=== PATIENT | female | born 1995 | race Caucasian/White ===

== ENCOUNTER 2018-09-16 09:38 | Emergency (ER) | payer SELFPAY ==
[2018-09-16 09:46] VITALS: BP 119/73; PULSE 86; RESP 16; TEMP 36.8; O2SAT 98
--- NOTE | 2018-09-16 10:11 | DI.US.S_ITS ---
PROCEDURE: US ABDOMEN COMPLETE INDICATIONS: severe R sided abdominal pain, fever TECHNIQUE: Real-time scanning was performed of the abdominal and retroperitoneal organs, with image documentation. COMPARISON: None. FINDINGS: Liver: Liver is normal in size and homogeneous in echotexture. Gallbladder: The gallbladder appears normal Biliary ducts: Intrahepatic bile ducts are non-dilated. Extrahepatic bile duct caliber measures 4.0 mm. Normal is 6-7 mm or less in diameter, or 10 mm or less post-cholecystectomy. Pancreas: Visualized portions of the pancreas are sonographically normal. Spleen: Spleen is normal in size and homogeneous in echotexture. Kidneys: Kidneys are normal in size and echotexture. Right kidney measures 11.3 cm long; left kidney measures 11.5 cm long. No hydronephrosis or nephrolithiasis. No solid masses. Aorta: Visualized aorta is normal in caliber at less than 3 cm. Iliacs: Is not visualized due to bowel gas. IVC: Intrahepatic inferior vena cava is patent. Miscellaneous: No free abdominal fluid. IMPRESSION: Bowel gas over the pelvis precludes visualization of the iliac arteries. The aorta is normal in caliber. A normal or abnormal appendix could not be located as a result. There is no hydronephrosis or nephrolithiasis seen. Depending on the clinical status followup by CT scanning may become necessary. Dictated by: Dakotah Brito M.D. on 09/16/2018 at 12:36 Approved by: Dakotah Brito M.D. on 09/16/2018 at 12:37
--- NOTE | 2018-09-16 10:12 | ED.ABDPAIN ---
HPI - Abdominal Pain General Chief Complaint: Abdominal Pain Stated Complaint: SHARP PAIN IN STOMACH Time Seen by Provider: 09/16/18 09:45 Source: patient Mode of arrival: ambulatory Limitations: no limitations History of Present Illness HPI narrative: 23-year-old occasional smoker presents with a friend in the chief complaint of some vague right-sided abdominal pain. She states she has had this pain for about a week. She denies any nausea or vomiting. She denies radiation of her pain nor provocation or palliation. She states she has had no vaginal bleeding and minimal discharge. She is sexually active. Patient states the symptoms have been relatively stable for the past few days. [facility] and [facility] did a very thorough examination including pelvic exam and swabs. She was tested for multiple STDs which were negative. She was diagnosed with bacterial vaginosis and sent home on Flagyl. She just had her last period which was normal for her MD complaint: abdominal pain Onset (ago): day(s) Pain Consistency: constant Location: R flank Severity: mild Quality: cramping and aching Radiation: none Migration to: no migration Relieving factors: nothing Exacerbating factors: nothing Associated symptoms: nausea Treatments prior to arrival: other Related Data Patient : No Home Medications Medication Instructions Recorded Confirmed metronidazole 500 mg PO BIDX7 09/16/18 09/16/18 Allergies Allergy/AdvReac Type Severity Reaction Status Date / Time No Known Drug Allergies Allergy Verified 09/16/18 09:46 Review of Systems Review of Systems All systems reviewed & are unremarkable except as noted in HPI and below Constitutional Denies chills, Denies fever(s), Denies lethargy and Denies weakness Eyes Denies change in vision, Denies eye discharge, Denies irritation and Denies loss of vision ENT Ears, Nose, Mouth, and Throat: Denies change in voice, Denies neck pain and Denies sore throat Cardiovascular Denies chest pain, Denies irregular heart rhythm, Denies lightheadedness, Denies palpitations, Denies dyspnea, Denies dyspnea on exertion and Denies orthopnea Respiratory Denies cough, Denies dyspnea, Denies dyspnea on exertion and Denies wheezing Gastrointestinal Gastrointestinal: Reports abdominal pain, Denies change in bowel habits, Denies diarrhea, Denies nausea and Denies vomiting Genitourinary Denies hematuria, Denies flank pain, Denies urinary incontinence and Denies urinary urgency Musculoskeletal Denies neck pain Integumentary/Breasts Denies pruritus, Denies erythema, Denies rash and Denies wounds Neurologic Denies confusion, Denies loss of vision and Denies weakness Psychiatric Denies anxiety, Denies confusion, Denies depression, Denies homicidal ideation and Denies suicidal ideation Endocrine Denies palpitations Hematologic/Lymphatic Denies easy bruising Allergic/Immunologic Denies wheezing PFSH Surgical History Status post knee surgery Family History Father Age: 57 Hypertension High cholesterol Grandfather Age: 80 Hypertension Stroke Grandmother Cancer Grandfather Cancer Grandmother Age: 89 Stroke Social History Smoking Status: Never smoker Exam Narrative Exam Narrative: GENERAL: 23-year-old female resting comfortably, was some obvious right-sided abdominal pain, clutching her abdomen HEAD: Atraumatic. Normocephalic. No temporal or scalp tenderness. EYES: Pupils equal round and reactive. Extraocular motions intact. No scleral icterus. No injection or drainage. ENT: Nose without bleeding, purulent drainage or septal hematoma. Throat without erythema, tonsillar hypertrophy or exudate. Uvula midline. Airway patent. NECK: Trachea midline. No JVD or lymphadenopathy. Supple, nontender, no meningeal signs. CARDIOVASCULAR: Regular rate and rhythm without murmurs, gallops, or rubs. RESPIRATORY: Clear to auscultation. Breath sounds equal bilaterally. No wheezes, rales, or rhonchi. GASTROINTESTINAL: Abdomen soft, mild mid right-sided pain barely made worse with palpation, nondistended. No hepato-splenomegaly, or palpable masses. No guarding. EXTREMITIES: No clubbing, cyanosis, or edema. No joint tenderness, effusion, or edema noted. BACK: Nontender without deformity or crepitance. No flank tenderness. NEURO: AOx3. SKIN: No rash or erythema. Initial Vital Signs Initial Vital Signs: Vital Signs Temperature 98.3 F 09/16/18 09:46 Pulse Rate 86 09/16/18 09:46 Respiratory Rate 16 09/16/18 09:46 Blood Pressure 119/73 09/16/18 09:46 Pulse Oximetry 98 09/16/18 09:46 Course Orders Ordered: ED Orders 09/16/18 11:04 Urine Microscopic Stat Vital Signs - 8 hr 09/16/18 13:35 Pulse Rate 73 Respiratory Rate 20 Blood Pressure 104/73 Pulse Oximetry 98 MDM - Abdominal Pain Differential Diagnosis Differential diagnosis: Likely abdominal pain, acute appendicitis, calculus of kidney, constipation, diverticulitis, endometriosis, gastroenteritis, pancreatitis and small bowel obstruction Medical Records Attestation: I reviewed the patient's medical records. Lab Data Attestation: I reviewed the patient's lab results. Result diagrams: 09/16/18 10:10 09/16/18 10:10 Lab Results 09/16/18 09/16/18 09/16/18 Range/Units 10:10 10:10 10:10 WBC 9.3 (4.5-11.0) X10^3/uL RBC 4.28 (4.0-5.2) X10^6/uL Hgb 12.8 (12.0-16.0) g/dL Hct 38.3 (36-46) % MCV 89.6 (80-100) fL MCH 29.9 (26-34) PG MCHC 33.4 (30-36) % RDW 12.6 (11.6-14.8) % Plt Count 299 (150-400) X10^3/uL Neut % (Auto) 68.8 (50-75) % Lymph % (Auto) 18.7 L (25-40) % [place] % (Auto) 10.6 (3-14) % Eos % (Auto) 1.5 L (2-4) % Baso % (Auto) 0.4 (0-2) % Neut # (Auto) 6400 H (9554-5676) /uL Sodium 143 (137-145) mmol/L Potassium 4.7 (3.4-5.1) mmol/L Chloride 105 (98-107) mmol/L Carbon Dioxide 25 (22-32) mmol/L BUN 12 (7-17) mg/dL Creatinine 0.90 (0.52-1.04) mg/dL Estimated GFR > 60.0 (>60) mL/min BUN/Creatinine Ratio 13.3 (6-22) Glucose 98 (70-100) mg/dL Calcium 9.1 (8.4-10.2) mg/dL Total Bilirubin 0.7 (0.2-1.3) mg/dL AST 33 (14-36) IU/L ALT 18 (9-52) IU/L Alkaline Phosphatase 38 (38-126) U/L Total Protein 8.5 H (6.3-8.2) g/dL Albumin 4.5 (3.5-5.0) g/dL Globulin 4.0 (1.7-4.1) g/dL Albumin/Globulin Ratio 1.1 (1.0-2.8) Lipase 103 (23-300) U/L Urine RBC (0-5/HPF) Urine WBC (0-5/HPF) Ur Squamous Epith Cells Urine Bacteria (None) Ur Culture Indicated? Micro UA Comment 09/16/18 Range/Units 11:04 WBC (4.5-11.0) X10^3/uL RBC (4.0-5.2) X10^6/uL Hgb (12.0-16.0) g/dL Hct (36-46) % MCV (80-100) fL MCH (26-34) PG MCHC (30-36) % RDW (11.6-14.8) % Plt Count (150-400) X10^3/uL Neut % (Auto) (50-75) % Lymph % (Auto) (25-40) % [place] % (Auto) (3-14) % Eos % (Auto) (2-4) % Baso % (Auto) (0-2) % Neut # (Auto) (9458-7284) /uL Sodium (137-145) mmol/L Potassium (3.4-5.1) mmol/L Chloride (98-107) mmol/L Carbon Dioxide (22-32) mmol/L BUN (7-17) mg/dL Creatinine (0.52-1.04) mg/dL Estimated GFR (>60) mL/min BUN/Creatinine Ratio (6-22) Glucose (70-100) mg/dL Calcium (8.4-10.2) mg/dL Total Bilirubin (0.2-1.3) mg/dL AST (14-36) IU/L ALT (9-52) IU/L Alkaline Phosphatase (38-126) U/L Total Protein (6.3-8.2) g/dL Albumin (3.5-5.0) g/dL Globulin (1.7-4.1) g/dL Albumin/Globulin Ratio (1.0-2.8) Lipase (23-300) U/L Urine RBC None seen (0-5/HPF) Urine WBC 0-1/hpf (0-5/HPF) Ur Squamous Epith Cells 1-5 /hpf Urine Bacteria None seen (None) Ur Culture Indicated? Cult not indicated Micro UA Comment Not Reportable Point of care testing: Point of Care Testing Test Results Negative Urine Dip Bedside Urine Glucose Negative Bedside Urine Bilirubin - Negative Bedside Urine Ketone - Negative Urine Specific [place] 1.015 Bedside Urine Occult Blood - Negative Bedside Urine pH 6.0 Bedside Urine Protein - Negative Bedside Urine Urobilinogen - Negative Bedside Urine Nitrite - Negative Bedside Urine Leukocytes + 70 Esterase Imaging Data US - abdomen: Radiologist's impression: No acute process MDM Narrative Medical decision making narrative: Pelvic inflammatory disease considered but [facility] and [facility] lab findings it is thought much less likely. Acute appendicitis considered but given lack of progression of symptoms, normal appetite, lack of right lower quadrant pain, fever or elevated white blood cell count is thought much less likely. Gallbladder disease considered but lack of right upper quadrant pain or abdominal ultrasound findings make it less likely. We discussed the possibility of using an abdominal CT to further elucidate the source of this patient's symptoms but she refused at this point time stating she would prefer to wait and get it done only if her symptoms worsened Discharge Plan Departure Patient Disposition: Home Clinical Impression: Abdominal pain Discharge Date/Time: 09/16/18 13:36 Interventions: ED Discharge Assessment Last Done: 09/16/18 13:35 Instructions: DI for Abdominal Pain-Adult Activity Restrictions/Additional Instructions: *You have been diagnosed with [ nonspecific right-sided abdominal pain ] *What to do: * continue to take medications as directed *Follow up with your primary care provider in 2-3 days, call for an appointment. Let them know you were seen in the Emergency Department and that we ask that you be seen in follow up *Return to ER if you should have any new, worsening or concerning symptoms Prescriptions: No Action metronidazole 500 mg tablet 500 mg PO BIDX7 RF: 0 Referrals: Mark Lewis MD [Physician] - Rosalba Aburto MD [Physician] - Marlee Gregorio MD [Physician] -
[2018-09-16 10:21] LABS: Add Manual Diff / Slide Review NO; Basophils Percent Auto 0.4 % (0-2); Eosinophils Percent Auto 1.5 % (2-4); Hematocrit 38.3 % (36-46); Hemoglobin 12.8 g/dL (12.0-16.0); Lymphocytes Percent Auto 18.7 % (25-40); Mean Corpuscular HGB Conc 33.4 % (30-36); Mean Corpuscular Hemoglobin 29.9 PG (26-34); Mean Corpuscular Volume 89.6 fL (80-100); Monocytes Percent Auto 10.6 % (3-14); Neutrophils Absolute Auto 6400 /uL (3000-5900); Neutrophils Percent Auto 68.8 % (50-75); Platelet Count 299 X10^3/uL (150-400); Red Blood Cell Count 4.28 X10^6/uL (4.0-5.2); Red Cell Distribution Width 12.6 % (11.6-14.8); White Blood Cell Count 9.3 X10^3/uL (4.5-11.0)
[2018-09-16 10:33] LABS: Alanine Aminotransferase 18 IU/L (9-52); Albumin 4.5 g/dL (3.5-5.0); Albumin Globulin Ratio 1.1 (1.0-2.8); Alkaline Phosphatase 38 U/L (38-126); Aspartate Aminotransferase 33 IU/L (14-36); BUN Creatinine Ratio 13.3 (6-22); Bilirubin Total 0.7 mg/dL (0.2-1.3); Blood Urea Nitrogen 12 mg/dL (7-17); Calcium 9.1 mg/dL (8.4-10.2); Carbon Dioxide 25 mmol/L (22-32); Chloride 105 mmol/L (98-107); Estimated Glomerular Filt Rate > 60.0 mL/min (>60); Glucose 98 mg/dL (70-100); Lipase 103 U/L (23-300); Potassium 4.7 mmol/L (3.4-5.1); Sodium 143 mmol/L (137-145); Total Protein 8.5 g/dL (6.3-8.2)
[2018-09-16 10:34] LABS: HEMOLYSIS 126 (0-50)
[2018-09-16 11:05] LABS: Bacteria Urine None Seen; RBC Urine None Seen (0-5/HPF)
[2018-09-16 11:16] LABS: Squamous Epithelial Cell Urine 1-5 /HPF; WBC Urine 0-1/HPF (0-5/HPF)
[2018-09-16 11:17] LABS: Culture Indicated Urine Cult Not Indicated
[2018-09-16 13:35] VITALS: BP 104/73; PULSE 73; RESP 20; O2SAT 98
== END 2018-09-16 13:36 | disposition home or self-care (01) ==
PROVIDERS: Emergency Provider Emergency Medicine
DX: R10.9 Unspecified abdominal pain (principal)
CPT/HCPCS: 36591; 76700; 80053; 81003; 81015; 81025; 83690; 85025; 99282; 99285

== ENCOUNTER → 2022-06-15 17:28 | Outpatient (CLI) | payer OTHER, MEDICAID, SELFPAY ==
[2022-06-15 18:45] LABS: HCG Quantitative /Beta subunit 15791 mIU/mL
== END ==
PROVIDERS: Referring Provider Obstetrics & Gynecology; Visit Provider Obstetrics & Gynecology
DX: Z87.59 Personal history of other complications of pregnancy, childbirth and the puerperium (principal)
CPT/HCPCS: 36415; 84702

== ENCOUNTER → 2022-06-17 16:46 | Outpatient (CLI) | payer OTHER, MEDICAID, SELFPAY ==
[2022-06-17 19:22] LABS: HCG Quantitative /Beta subunit 20386 mIU/mL
== END ==
PROVIDERS: Referring Provider Obstetrics & Gynecology; Visit Provider Obstetrics & Gynecology
DX: Z87.59 Personal history of other complications of pregnancy, childbirth and the puerperium (principal)
CPT/HCPCS: 36415; 84702

== ENCOUNTER 2022-06-28 09:52 | Emergency (ER) | payer OTHER, MEDICAID, SELFPAY ==
--- NOTE | 2022-06-28 10:07 | DI.US.S_ITS ---
PROCEDURE: US OB <= 14 WEEKS FETUS INDICATIONS: BLEEDING OUTSIDE/PRIOR DATING DATA: Last menstrual period (LMP): 2021. LMP-based estimated date of delivery (CAMERON): 02/08/2023. First dating scan (date and location): 01/26/2022. Estimated date of delivery (CAMERON) from first dating scan: 02/07/2023. The calculations are made using the ultrasound CAMERON of 02/08/2023. TECHNIQUE: Real-time scanning was performed of the fetus and maternal pelvic organs, with image documentation. Endovaginal scanning was also performed to better visualize the fetus and maternal ovaries. COMPARISON: None. FINDINGS: Embryo: A single live intrauterine is seen. The measured heart rate is 158 beats per minute. The crown-rump length measures 1.6 cm, corresponding to an estimated gestational age of 8 weeks 0 days. It is too early for detailed anatomic assessment. By visual inspection, the amount of amniotic fluid is within normal limits. Along the posterior aspect of the gestational sac, there is a mildly hypoechoic focus seen that measures 3.1 x 2.6 x 4.2 cm. Maternal organs: Ovaries are within normal limits, with a likely left ovarian corpus luteum. IMPRESSION: A single live intrauterine is seen. No significant discrepancy is found between the estimated gestational age based on these images and the estimated gestational age based upon the given date of the last menstrual period. Likely subchorionic hemorrhage seen adjacent to the gestational sac. Close clinical followup, with serial beta-hCG and serial ultrasound are recommended, if clinically appropriate. We strive to produce accurate, complete, and clear reports of imaging services. To assist us in improving patient care, this report was composed using standard report templates and voice recognition software. Therefore, it may contain abnormal punctuation, insertions and/or omissions. Occasional wrong-word or sound-alike substitutions may occur. Though we review the report and make efforts to correct it, we do recommend that the report be read carefully in proper context to recognize any text inaccuracies. Dictated by: Handy Pizano M.D. on 06/28/2022 at 10:15 Approved by: Handy Pizano M.D. on 06/28/2022 at 10:18
[2022-06-28 10:13] VITALS: BP 128/78; PULSE 68; RESP 18; TEMP 36.6; O2SAT 100; BMI 26.3
[2022-06-28 10:22] LABS: Add Manual Diff / Slide Review NO; Basophils Absolute Auto 0 /uL (0-100); Basophils Percent Auto 0.3 % (0-2); Eosinophils Absolute Auto 100 /uL (0-450); Eosinophils Percent Auto 1.1 % (2-4); Hematocrit 36.4 % (36-46); Hemoglobin 12.4 g/dL (12.0-16.0); Lymphocytes Absolute Auto 1700 /uL (1100-4500); Lymphocytes Percent Auto 25.3 % (25-40); Mean Corpuscular HGB Conc 34.2 % (30-36); Mean Corpuscular Hemoglobin 30.2 PG (26-34); Mean Corpuscular Volume 88.3 fL (80-100); Monocytes Absolute Auto 500 /uL (0-900); Neutrophils Absolute Auto 4400 /uL (1500-7000); Neutrophils Percent Auto 65.3 % (50-75); Platelet Count 247 X10^3/uL (150-400); Red Blood Cell Count 4.12 X10^6/uL (4.0-5.2); Red Cell Distribution Width 12.4 % (11.6-14.8); White Blood Cell Count 6.8 X10^3/uL (4.5-11.0)
[2022-06-28 10:25] LABS: Appearance Urine UA CLEAR; Bilirubin Urine UA NEGATIVE (NEGATIVE); Color Urine UA RED; Glucose Urine UA NEGATIVE (Negative); Ketones Urine UA NEGATIVE (NEGATIVE); Leukocyte Esterase Urine UA NEGATIVE (NEGATIVE); Nitrite Urine UA NEGATIVE (Negative); Occult Blood Urine UA 3+ (Negative); Protein Urine UA 3+ (Negative); Specific Gravity Urine UA 1.025 (1.000-1.035); Urobilinogen Urine UA 0.2 E.U./dL (0.2); pH Urine UA 6.5 (4.5-8.0)
[2022-06-28 10:26] LABS: Bacteria Urine None Seen; Culture Indicated Urine Cult Not Indicated; RBC Urine >100/HPF (0-5/HPF); WBC Urine None Seen (0-5/HPF)
[2022-06-28 10:32] LABS: Alanine Aminotransferase 13 IU/L (<35); Albumin 4.2 g/dL (3.5-5.0); Albumin Globulin Ratio 1.3 (1.0-2.8); Alkaline Phosphatase 34 U/L (38-126); Aspartate Aminotransferase 19 IU/L (14-36); BUN Creatinine Ratio 18.1 (6-22); Bilirubin Total 0.6 mg/dL (0.2-1.3); Blood Urea Nitrogen 13 mg/dL (7-17); Carbon Dioxide 22 mmol/L (22-32); Chloride 103 mmol/L (98-107); Estimated Glomerular Filt Rate > 60 mL/min (>60); Globulin 3.2 g/dL (1.7-4.1); Glucose 98 mg/dL (70-100); HEMOLYSIS < 15 (0-50); Potassium 3.6 mmol/L (3.4-5.1); Sodium 135 mmol/L (137-145); Total Protein 7.4 g/dL (6.3-8.2)
[2022-06-28 10:47] VITALS: PULSE 64; O2SAT 100
--- NOTE | 2022-06-28 10:59 | ED_ITS ---
HPI - General Chief complaint: OB/Uterine Contractions Stated complaint: 8 WEEKS , BLEEDING, ABD PAIN Time Seen by Provider: 06/28/22 10:01 Source: patient Mode of arrival: Family Vehicle Limitations: no limitations History of Present Illness HPI Narrative: Patient is a 26-year-old female currently about 8 weeks presenting today with sudden onset of vaginal bleeding. She has minimal abdominal cramping. She has mild nausea. She has an appointment with a new OB tomorrow. She denies any painful or frequent urination. Principal miscarriages usually in the 1st trimester, however 1 at 22weeks. Related Data Home Medications Medication Instructions Recorded Confirmed metronidazole 500 mg tablet 500 mg PO BIDX7 09/16/18 09/16/18 Previous Rx's Medication Instructions Recorded ketoconazole 200 mg tablet 200 mg PO Q DAY ##4 05/26/11 Allergies Allergy/AdvReac Type Severity Reaction Status Date / Time No Known Drug Allergies Allergy Verified 06/28/22 10:16 Review of Systems Review of Systems Narrative: GENERAL: Denies chills, fatigue, malaise, fever, sweats, travel HEENT: Denies sinus pain, ear pain, sore throat, difficulty swallowing, neck pain RESPIRATORY: Denies dyspnea, cough, wheezing, hemoptysis, sputum. CARDIOVASCULAR: Denies chest pain, palpitations, orthopnea, edema GASTROINTESTINAL: Denies nausea, vomiting, abdominal pain, diarrhea, constipation, melena. GUIDEMAN: See HPI : Denies dysuria, frequency, incontinence, hematuria, urinary retention, flank pain. MUSCULOSKELETAL: Denies weakness, joint pain, or bony pain SKIN: No rash, no erythema, no pruritus NEUROLOGIC: Denies weakness, dizziness, headache, numbness, change in speech, confusion PSYCHIATRIC: No concerning psychosocial issues. 12 point review of systems is negative except for those stated above and HPI Exam Initial Vital Signs Initial Vital Signs: Vital Signs Temperature 97.8 F 06/28/22 10:13 Pulse Rate 68 06/28/22 10:13 Respiratory Rate 18 06/28/22 10:13 Blood Pressure 128/78 06/28/22 10:13 Pulse Oximetry 100 06/28/22 10:13 Oxygen Delivery Method 06/28/22 10:13 GENERAL: Alert pleasant 26-year-old and in no acute distress. HEENT: Head atraumatic,EOMI, pupils reactive, face symmetric, moist mucous membranes CARDIOVASCULAR: Regular rate and rhythm without murmurs, rubs or gallops. RESPIRATORY: Breath sounds equal bilaterally, no wheezes rales or rhonchi. ABDOMEN: Soft, nontender. Normoactive bowel sounds all 4 quadrants. No guarding or rebound. EXTREMITIES: Normal range of motion, no clubbing or edema. Neurovascularly intact NEUROLOGICAL: Alert and oriented x4. SKIN: Warm, dry, no laceration, no petechiae, no rashes or lesions. Course Orders Ordered: ED Orders 06/28/22 10:07 US OB <= 14 weeks fetus Stat 06/28/22 10:15 ABO RH Type Stat CBC Auto Diff [Complete Blood Count AUTO DIFF] Stat CMP [Comprehensive Metabolic Panel] Stat HCG Quantitative /Beta subunit Stat Urinalysis and Microscopic Stat Vital Signs Vital signs: Vital Signs - 8 hr 06/28/22 10:13 06/28/22 10:47 06/28/22 11:00 Temperature 97.8 F Pulse Rate 68 64 60 Respiratory Rate 18 Blood Pressure 128/78 Pulse Oximetry 100 100 100 Oxygen Delivery Method Room Air 06/28/22 11:38 Temperature Pulse Rate 69 Respiratory Rate 12 Blood Pressure 113/65 Pulse Oximetry 99 Oxygen Delivery Method Room Air MDM - OB/Uterine Contractions Lab Data Result diagrams: 06/28/22 10:15 06/28/22 10:15 Labs: Lab Results 06/28/22 06/28/22 06/28/22 Range/Units 10:15 10:15 10:15 WBC 6.8 (4.5-11.0) X10^3/uL RBC 4.12 (4.0-5.2) X10^6/uL Hgb 12.4 (12.0-16.0) g/dL Hct 36.4 (36-46) % MCV 88.3 (80-100) fL MCH 30.2 (26-34) PG MCHC 34.2 (30-36) % RDW 12.4 (11.6-14.8) % Plt Count 247 (150-400) X10^3/uL Neut % (Auto) 65.3 (50-75) % Lymph % (Auto) 25.3 (25-40) % [place] % (Auto) 8.0 (3-14) % Eos % (Auto) 1.1 L (2-4) % Baso % (Auto) 0.3 (0-2) % Neut # (Auto) 4400 (9181-3382) /uL Lymph # (Auto) 1700 (3964-4569) /uL [place] # (Auto) 500 (0-900) /uL Eos # (Auto) 100 (0-450) /uL Baso # (Auto) 0 (0-100) /uL Sodium 135 L (137-145) mmol/L Potassium 3.6 (3.4-5.1) mmol/L Chloride 103 (98-107) mmol/L Carbon Dioxide 22 (22-32) mmol/L BUN 13 (7-17) mg/dL Creatinine 0.72 (0.52-1.04) mg/dL Estimated GFR > 60 (>60) mL/min BUN/Creatinine Ratio 18.1 (6-22) Glucose 98 (70-100) mg/dL Calcium 9.0 (8.4-10.2) mg/dL Total Bilirubin 0.6 (0.2-1.3) mg/dL AST 19 (14-36) IU/L ALT 13 (<35) IU/L Alkaline Phosphatase 34 L (38-126) U/L Total Protein 7.4 (6.3-8.2) g/dL Albumin 4.2 (3.5-5.0) g/dL Globulin 3.2 (1.7-4.1) g/dL Albumin/Globulin Ratio 1.3 (1.0-2.8) HCG, Quant 82674 mIU/mL Urine Color Urine Appearance Urine pH (4.5-8.0) Ur Specific [place] (1.000-1.035) Urine Protein (Negative) Urine Glucose (UA) (Negative) g/dL Urine Ketones (NEGATIVE) Urine Occult Blood (Negative) Urine Nitrate (Negative) Urine Bilirubin (NEGATIVE) Urine Urobilinogen (0.2) E.U./dL Ur Leukocyte Esterase (NEGATIVE) Urine RBC (0-5/HPF) Urine WBC (0-5/HPF) Urine Bacteria (None) Ur Culture Indicated? Blood Type AB Positive 06/28/22 Range/Units 10:15 WBC (4.5-11.0) X10^3/uL RBC (4.0-5.2) X10^6/uL Hgb (12.0-16.0) g/dL Hct (36-46) % MCV (80-100) fL MCH (26-34) PG MCHC (30-36) % RDW (11.6-14.8) % Plt Count (150-400) X10^3/uL Neut % (Auto) (50-75) % Lymph % (Auto) (25-40) % [place] % (Auto) (3-14) % Eos % (Auto) (2-4) % Baso % (Auto) (0-2) % Neut # (Auto) (2296-0014) /uL Lymph # (Auto) (5122-9903) /uL [place] # (Auto) (0-900) /uL Eos # (Auto) (0-450) /uL Baso # (Auto) (0-100) /uL Sodium (137-145) mmol/L Potassium (3.4-5.1) mmol/L Chloride (98-107) mmol/L Carbon Dioxide (22-32) mmol/L BUN (7-17) mg/dL Creatinine (0.52-1.04) mg/dL Estimated GFR (>60) mL/min BUN/Creatinine Ratio (6-22) Glucose (70-100) mg/dL Calcium (8.4-10.2) mg/dL Total Bilirubin (0.2-1.3) mg/dL AST (14-36) IU/L ALT (<35) IU/L Alkaline Phosphatase (38-126) U/L Total Protein (6.3-8.2) g/dL Albumin (3.5-5.0) g/dL Globulin (1.7-4.1) g/dL Albumin/Globulin Ratio (1.0-2.8) HCG, Quant mIU/mL Urine Color Red Urine Appearance Clear Urine pH 6.5 (4.5-8.0) Ur Specific [place] 1.025 (1.000-1.035) Urine Protein 3+ H (Negative) Urine Glucose (UA) Negative (Negative) g/dL Urine Ketones Negative (NEGATIVE) Urine Occult Blood 3+ H (Negative) Urine Nitrate Negative (Negative) Urine Bilirubin Negative (NEGATIVE) Urine Urobilinogen 0.2 (0.2) E.U./dL Ur Leukocyte Esterase Negative (NEGATIVE) Urine RBC >100/hpf H (0-5/HPF) Urine WBC None seen (0-5/HPF) Urine Bacteria None seen (None) Ur Culture Indicated? Cult not indicated Blood Type Imaging Data US - OB: Radiologist's Impression: [address] [place] [id number] Ultrasound Report Signed Patient: Oamr Alcazar MR#: [id number] : 1995 Acct:[id number] Age/Sex: 26 / F Date of Service: 06/28/22 Loc: ED Accession Number: [id number] ?? Procedure: US OB <= 14 weeks fetus Ordering Provider: Rebekah Ramirez D.O. PROCEDURE:? US OB <= 14 WEEKS FETUS ? INDICATIONS:? BLEEDING ? OUTSIDE/PRIOR DATING DATA:? Last menstrual period (LMP):? 2021.? LMP-based estimated date of delivery (CAMERON):? 02/08/2023.? First dating scan (date and location):? 01/26/2022.? Estimated date of delivery (CAMERON) from first dating scan:? 02/07/2023. The calculations are made using the ultrasound CAMERON of 02/08/2023. ? TECHNIQUE:? Real-time scanning was performed of the fetus and maternal pelvic organs, with image documentation.? Endovaginal scanning was also performed to better visualize the fetus and maternal ovaries.? ? COMPARISON:? None. ? FINDINGS:? ? Embryo:? A single live intrauterine is seen. The measured heart rate is 158 beats per minute. The crown-rump length measures 1.6 cm, corresponding to an estimated gestational age of 8 weeks 0 days.? It is too early for detailed anatomic assessment.? By visual inspection, the amount of amniotic fluid is within normal limits.? Along the posterior aspect of the gestational sac, there is a mildly hypoechoic focus seen that measures 3.1 x 2.6 x 4.2 cm.? ? ? Maternal organs:? Ovaries are within normal limits, with a likely left ovarian corpus luteum. ? ? ? IMPRESSION:? A single live intrauterine is seen. ? ? No significant discrepancy is found between the estimated gestational age based on these images and the estimated gestational age based upon the given date of the last menstrual period. ? Likely subchorionic hemorrhage seen adjacent to the gestational sac. ? Close clinical followup, with serial beta-hCG and serial ultrasound are recommended, if clinically appropriate. ? We strive to produce accurate, complete, and clear reports of imaging services. To assist us in improving patient care, this report was composed using standard report templates and voice recognition software. Therefore, it may contain abnormal punctuation, insertions and/or omissions. Occasional wrong-word or sound-alike substitutions may occur. Though we review the report and make efforts to correct it, we do recommend that the report be read carefully in proper context to recognize any text inaccuracies. ? ? ? Dictated by: Handy Pizano M.D. on 06/28/2022 at 10:15 ? ? MDM Narrative Medical decision making narrative: Patient presenting with vaginal bleeding currently . Ultrasound confirms IUP with probable subchorionic hemorrhage. HCG continues to rise. She has minimal abdominal pain. She has appointment with her new OB tomorrow. Discharge Plan Departure Patient Disposition: Home Clinical Impression: Hemorrhage affecting in first trimester Instructions: DI for Vaginal Bleeding During Activity Restrictions/Additional Instructions: HCG= 99162 *You have been diagnosed with vaginal bleeding early in *What to do: At this time baby appears healthy. Small area of bleeding which should resolve. Currently pelvic rest nothing in or out of the vagina no intercourse. *Continue to take medications as directed *Follow up with your primary care provider in 2-3 days or call [phone] Your OB tomorrow as scheduled *Return to ER if you should have increased pain large blood clots more than 2 pads in 1 hour or any new, worsening or concerning symptoms Prescriptions: No Action ketoconazole 200 MG tablet 200 mg PO Q DAY Qty: 4 0RF metronidazole 500 mg tablet 500 mg PO BIDX7 Label Comments: TK 1 T PO BID FOR 7 DAYS Visit Report Forms: Patient Portal/API
[2022-06-28 11:00] VITALS: PULSE 60; O2SAT 100
[2022-06-28 11:14] LABS: HCG Quantitative /Beta subunit 45890 mIU/mL
[2022-06-28 11:38] VITALS: BP 113/65; PULSE 69; RESP 12; O2SAT 99
== END 2022-06-28 11:41 | disposition home or self-care (01) ==
PROVIDERS: Emergency Provider Emergency Medicine
DX: O20.9 Hemorrhage in early pregnancy, unspecified (principal); Z3A.08 8 weeks gestation of pregnancy
CPT/HCPCS: 36415; 76801; 76817; 80053; 81001; 84702; 85025; 86900; 86901; 99284